=== PATIENT | male | born 1945 | race Caucasian/White ===

== ENCOUNTER 2017-01-03 14:47 | Emergency (ER) | payer OTHER ==
[~2017-01-03] VITALS: Ht 180.3 cm; Wt 100.2 kg
[~2017-01-03 14:47] MED LIST: ATENOLOL25 MG PO; ATORVASTATIN CA40 M1 PO; CARVEDILOL25 M1 PO; CLEOCIN HCL300 MG PO; CYCLOBENZAPRINE5 MG PO; GLIPIZIDE10 MG PO; HYDROCHLOROTHIA25 MG PO; LAC PO; LOSARTAN POTASS50 M1 PO; METFORMIN HCL850 MG PO; NIC21 TD; NOVOLIN 70/3010 ML SC
[2017-01-03 18:11] VITALS: BP 136/98
== END 2017-01-03 18:11 | disposition home or self-care (01) ==
LOC: ED 14:47
DX: S93.402A Sprain of unspecified ligament of left ankle, initial encounter (principal); E11.9 Type 2 diabetes mellitus without complications; I10 Essential (primary) hypertension; F41.9 Anxiety disorder, unspecified; E78.00 Pure hypercholesterolemia, unspecified; X58.XXXA Exposure to other specified factors, initial encounter; Y93.89 Activity, other specified; Y92.89 Other specified places as the place of occurrence of the external cause; Y99.8 Other external cause status
CPT/HCPCS: 85378; Q0092

== ENCOUNTER 2018-01-17 23:27 | Inpatient (IN) | payer OTHER ==
[~2018-01-17] VITALS: Ht 180.3 cm; Wt 100.3 kg
[2018-01-17 23:51] VITALS: Ht 180.3 cm; Wt 100.3 kg
[2018-01-18 02:30] LABS: BASOPHIL % 0.3 % (0-2); PLATELET COUNT 224 x10^3mcL (130-400); RED CELL DISTRIBUTION WIDTH 13.4 % (11.5-14.5)
[2018-01-18 02:31] LABS: UA SPECIFIC GRAVITY >=1.030 (1.005-1.035); microscopic required? YES; urine erythrocyte NEGATIVE (NEGATIVE)
[2018-01-18 02:32] LABS: CALCIUM 8.7 mg/dL (8.5-10.1); CARBON DIOXIDE 32.3 mmol/L (21-32); CHLORIDE SERUM 100 mmol/L (98-107); CREATININE SERUM 1.9 mg/dL (0.7-1.3); GLUCOSE SERUM 178 mg/dL (74-106); POTASSIUM SERUM 3.6 mmol/L (3.5-5.1); SODIUM SERUM 138 mmol/L (136-145)
[2018-01-18 02:37] LABS: ALBUMIN 2.6 g/dL (3.4-5.0); ALKALINE PHOSPHATASE 60 U/L (46-116); ALT/SGPT 22 U/L (16-63); AST/SGOT 15 U/L (15-37); BILIRUBIN TOTAL 0.86 mg/dL (0.20-1.00); TOTAL PROTEIN, SERUM 6.9 g/dL (6.4-8.2)
[2018-01-18] MEDS ORDERED: METFORMIN HCL850 MG PO (04:20)
[2018-01-18] MEDS ORDERED: ATENOLOL25 MG PO (04:21)
[2018-01-18] MEDS ORDERED: ATORVASTATIN CA20 M1 PO (04:21)
[2018-01-18] MEDS ORDERED: LOSARTAN POTASS50 M1 PO (04:21)
[2018-01-18] MEDS ORDERED: CARVEDILOL25 M1 PO (04:21)
[2018-01-18] MEDS ORDERED: NOVOLIN N100 U/ML SC (04:23)
[2018-01-18 05:25] LABS: T3 TOTAL 1.23 ng/mL
[2018-01-18 05:39] LABS: CHOLESTEROL/HDL RATIO 3.1; MAGNESIUM 1.7 mg/dL (1.8-2.4); PHOSPHOROUS 2.8 mg/dL (2.5-4.9)
[2018-01-18 05:55] LABS: AMPHETAMINE QUAL UR NONE DETECTED (See below)
[2018-01-18 06:04] LABS: FREE T4 1.08 ng/dL (0.76-1.46); FREE THYROXINE INDEX 2.4 ug/dL (1.4-4.5); T4(THYROXINE) 6.5 ug/dL (4.7-13.3)
[2018-01-18 06:08] VITALS: BP 142/79
[2018-01-18 08:53] VITALS: BP 116/68
[2018-01-18 13:13] LABS: CALCIUM 8.7 mg/dL (8.5-10.1); CARBON DIOXIDE 33.2 mmol/L (21-32); CHLORIDE SERUM 104 mmol/L (98-107); CREATININE SERUM 1.3 mg/dL (0.7-1.3); GLUCOSE SERUM 202 mg/dL (74-106); POTASSIUM SERUM 4.1 mmol/L (3.5-5.1); SODIUM SERUM 141 mmol/L (136-145)
[2018-01-18] MEDS ORDERED: CLEOCIN HCL300 MG PO (17:00)
[2018-01-18 17:04] VITALS: BP 138/67
[2018-01-18 17:15] VITALS: BP 116/68
== END 2018-01-18 18:25 | disposition home or self-care (01) | DRG 602 ==
LOC: ED 23:27 → MU 01-18 04:04
PROVIDERS: Emergency Medicine; Internal Medicine
DX: L03.116 Cellulitis of left lower limb (principal); N17.0 Acute kidney failure with tubular necrosis; E43 Unspecified severe protein-calorie malnutrition; D68.69 Other thrombophilia; E11.65 Type 2 diabetes mellitus with hyperglycemia; L03.115 Cellulitis of right lower limb; I87.2 Venous insufficiency (chronic) (peripheral); E78.5 Hyperlipidemia, unspecified; R80.9 Proteinuria, unspecified; F41.9 Anxiety disorder, unspecified; I10 Essential (primary) hypertension; Z79.4 Long term (current) use of insulin; Z68.31 Body mass index [BMI] 31.0-31.9, adult; Z79.84 Long term (current) use of oral hypoglycemic drugs
CPT/HCPCS: 82962; 83880; 84439; J3370; J3490; J7030; Q0092

== ENCOUNTER 2018-06-30 21:35 | Inpatient (IN) | payer OTHER | END 2018-07-01 14:42 | disposition home or self-care (01) | LOC: ED 21:35 → DU 07-01 01:32 → ED 21:35 → DU 07-01 01:58 → ED 21:35 → DU 07-01 01:32 → MU 07-01 06:45 | DX: E11.65 Type 2 diabetes mellitus with hyperglycemia (principal); E78.5 Hyperlipidemia, unspecified; F41.9 Anxiety disorder, unspecified; I10 Essential (primary) hypertension; Z88.6 Allergy status to analgesic agent; Z79.4 Long term (current) use of insulin ==